=== PATIENT | female | born 1965 | race Caucasian/White ===

== ENCOUNTER 2019-02-05 14:34 | Emergency (ER) | payer OTHER, MEDICAID ==
[~2019-02-05] VITALS: Ht 160 cm; Wt 46.7 kg
[2019-02-05 14:53] VITALS: BP 117/71
--- NOTE | 2019-02-05 14:55 | NUR ---
Note undone in EDM - 02/05/19 at 1804 by MED BIB SELF. PT C/O COUGHING X 2 DAYS, NON-PRODUCTIVE COUGH. SOB NOTED. INSPIRATORY AND EXPIRATORY BILATERAL WHEEZING. DENIES N/V/D. AAOX 4. VSS; PATIENT POSITIONED FOR COMFORT; HOB ELEVATED; BEDRAILS UP X1; BED DOWN. ER MADE AWARE OF PT STATUS.
--- NOTE | 2019-02-05 14:58 | NUR ---
PT VSS, NOT IN DISTRESS; AMB TO LOBBY ALONE
--- NOTE | 2019-02-05 15:08 | NUR ---
PT AMBULATES TO BED 10
--- NOTE | 2019-02-05 15:10 | NUR ---
BIB SELF. PT C/O COUGHING X 2 DAYS, NON-PRODUCTIVE COUGH. SOB NOTED. INSPIRATORY AND EXPIRATORY BILATERAL WHEEZING. DENIES N/V/D. AAOX 4. VSS; PATIENT POSITIONED FOR COMFORT; HOB ELEVATED; BEDRAILS UP X1; BED DOWN. ER MD MADE AWARE OF PT STATUS.
--- NOTE | 2019-02-05 16:22 | NUR ---
Patient being evaluated by physician at bedside.
[2019-02-05] MEDS ORDERED: predniSONE 20 MG TAB PO ONE (16:25)
[2019-02-05] MEDS ORDERED: ALBUTEROL SULFATE/IPRATROPIU 3 ML SOL IH ONE (16:25)
[2019-02-05 18:00] VITALS: BP 110/62
--- NOTE | 2019-02-05 18:00 | NUR ---
Patient discharged with v/s stable. Written and verbal after care instructions given and explained. Patient alert, oriented and verbalized understanding of instructions. Ambulatory with steady gait. All questions addressed prior to discharge. ID band removed. Patient advised to follow up with PMD. Rx of albuterol, prednisone given. Patient educated on indication of medication including possible reaction and side effects. Opportunity to ask questions provided and answered.
== END 2019-02-05 18:00 | disposition home or self-care (01) ==
LOC: MED 14:34
DX: J44.1 Chronic obstructive pulmonary disease with (acute) exacerbation (principal); F17.210 Nicotine dependence, cigarettes, uncomplicated; M54.9 Dorsalgia, unspecified; Z88.0 Allergy status to penicillin
CPT/HCPCS: 71045; 94640; 99283; J7512; J7620; Q0092